=== PATIENT | female | born 1945 | race Caucasian/White ===

== ENCOUNTER 2022-02-13 17:46 | Inpatient (IN) | payer MEDICARE, OTHER ==
[~2022-02-13] VITALS: Ht 162.6 cm; Wt 62.7 kg
[2022-02-13 19:15] LABS: BASOPHILS % 0.3 % (0.0-1.0); EOSINOPHILS # (AUTO) 0.4 (0.0-0.4); EOSINOPHILS % 4.2 % (0.0-6.0); HEMATOCRIT 27.7 % (34.2-44.1); HEMOGLOBIN 8.3 g/dL (12.0-16.0); LYMPHOCYTES # (AUTO) 1.6 (1.0-3.2); LYMPHOCYTES % 17.7 % (18.0-39.1); MEAN CORPUSCULAR HEMOGLOBIN 31.8 pg (28-32); MEAN CORPUSCULAR VOLUME 106.1 fL (81-99); MONOCYTES # (AUTO) 0.8 (0.2-0.8); MONOCYTES % 8.9 % (4.4-11.3); NEUTROPHILS # (AUTO) 5.9 (2.1-6.9); NEUTROPHILS % 68.1 % (38.7-80.0); PLATELET COUNT 216 x10e3/uL (140-360); RED BLOOD COUNT 2.61 x10e6/uL (3.6-5.1); RED CELL DISTRIBUTION WIDTH 14.2 % (11.7-14.4)
[2022-02-13 19:29] LABS: INR 0.97; PROTHROMBIN TIME 13.8 seconds (11.9-14.5)
[2022-02-13 19:32] LABS: PARTIAL THROMBOPLASTIN TIME 21.8 seconds (23.8-35.5)
[2022-02-13 19:39] LABS: ALBUMIN 2.9 g/dL (3.5-5.0); ALBUMIN/GLOBULIN RATIO 0.8 (0.8-2.0); ANION GAP 18.6 mmol/L (8-16); CALCIUM 7.8 mg/dL (8.4-10.2); CREATININE, SERUM 4.26 mg/dL (0.57-1.11); POTASSIUM 4.6 mmol/L (3.5-5.1)
[2022-02-13 19:47] LABS: CREATINE KINASE MB 5.1 ng/mL (0-5.0)
[2022-02-13] MEDS ORDERED: SODIUM CHLORIDE 0.9% 1000ML 1,000 ML IV SCH (21:00)
[2022-02-13] MEDS ORDERED: DEXTROSE 50% SYRINGE 50 ML IV PRN (21:30)
[2022-02-13] MEDS ORDERED: ONDANSETRON HCL INJ 2MG/ML 2ML 2 MG/ML VIAL IV PRN (21:30)
[2022-02-13 22:50] VITALS: BP 123/58
[2022-02-13] MEDS ORDERED: POLYETHYLENE GLYCOL 3350 17 GM PACK PO PRN (23:15)
[2022-02-13] MEDS ORDERED: ACETAMINOPHEN 325 MG TAB PO PRN (23:15)
[2022-02-14] VITALS (7 sets, daily range): BP systolic 113–145; BP diastolic 51–75
[2022-02-14 03:22] LABS: CREATINE KINASE MB 3.4 ng/mL (0-5.0)
[2022-02-14 06:05] LABS: BASOPHILS % 0.4 % (0.0-1.0); EOSINOPHILS # (AUTO) 0.4 (0.0-0.4); EOSINOPHILS % 5.4 % (0.0-6.0); HEMATOCRIT 24.2 % (34.2-44.1); HEMOGLOBIN 7.3 g/dL (12.0-16.0); LYMPHOCYTES # (AUTO) 1.6 (1.0-3.2); LYMPHOCYTES % 22.4 % (18.0-39.1); MEAN CORPUSCULAR HEMOGLOBIN 31.6 pg (28-32); MEAN CORPUSCULAR HGB CONC 30.2 g/dL (31-35); MEAN CORPUSCULAR VOLUME 104.8 fL (81-99); MONOCYTES # (AUTO) 0.7 (0.2-0.8); MONOCYTES % 9.9 % (4.4-11.3); NEUTROPHILS # (AUTO) 4.4 (2.1-6.9); NEUTROPHILS % 61.2 % (38.7-80.0); RED BLOOD COUNT 2.31 x10e6/uL (3.6-5.1); RED CELL DISTRIBUTION WIDTH 14.3 % (11.7-14.4)
[2022-02-14 06:19] LABS: PLATELET COUNT 199 x10e3/uL (140-360)
[2022-02-14 06:32] LABS: ALBUMIN 2.5 g/dL (3.5-5.0); ALBUMIN/GLOBULIN RATIO 0.8 (0.8-2.0); ANION GAP 16.8 mmol/L (8-16); CALCIUM 7.8 mg/dL (8.4-10.2); CREATININE, SERUM 4.25 mg/dL (0.57-1.11); POTASSIUM 4.8 mmol/L (3.5-5.1)
[2022-02-14 07:09] LABS: CREATINE KINASE MB 3.2 ng/mL (0-5.0)
[2022-02-14 07:15] LABS: CHOL/HDL RATIO 2.8 (3.0-3.6); MAGNESIUM 2.3 MG/DL (1.3-2.1); PHOSPHORUS 6.1 MG/DL (2.3-4.7)
[2022-02-14] MEDS ORDERED: FAMOTIDINE 20 MG TAB PO SCH (07:30)
[2022-02-14] MEDS: INSULIN REGULAR, HUMAN 100 UNIT/1 ML SQ SCH ×4 (07:30→21:00)
[2022-02-14 07:35] LABS: THYROID STIMULATING HORMONE 2.824 uIU/mL (0.350-4.940)
[2022-02-14] MEDS ORDERED: ASPIRIN 81 MG ENTERIC COATED PO SCH (09:00)
[2022-02-14] MEDS: CLOPIDOGREL BISULFATE 75 MG TAB PO SCH (09:49)
[2022-02-14] MEDS: DOCUSATE SODIUM 100 MG CAP PO SCH ×2 (09:49→17:49)
[2022-02-14] MEDS: MEGESTROL ACETATE 40 MG TAB PO SCH ×2 (09:49→17:49)
[2022-02-14 11:53] LABS: BASOPHILS # (AUTO) 0.1 (0.0-0.1); BASOPHILS % 0.7 % (0.0-1.0); EOSINOPHILS # (AUTO) 0.3 (0.0-0.4); EOSINOPHILS % 4.1 % (0.0-6.0); HEMOGLOBIN 7.8 g/dL (12.0-16.0); LYMPHOCYTES # (AUTO) 0.9 (1.0-3.2); LYMPHOCYTES % 12.9 % (18.0-39.1); MEAN CORPUSCULAR HEMOGLOBIN 31.6 pg (28-32); MEAN CORPUSCULAR VOLUME 105.3 fL (81-99); MONOCYTES # (AUTO) 0.6 (0.2-0.8); MONOCYTES % 8.3 % (4.4-11.3); NEUTROPHILS # (AUTO) 5.3 (2.1-6.9); NEUTROPHILS % 73.6 % (38.7-80.0); PLATELET COUNT 215 x10e3/uL (140-360); RED BLOOD COUNT 2.47 x10e6/uL (3.6-5.1); RED CELL DISTRIBUTION WIDTH 14.2 % (11.7-14.4)
[2022-02-14 12:21] LABS: ANION GAP 15.8 mmol/L (8-16); CALCIUM 7.9 mg/dL (8.4-10.2); CREATININE, SERUM 4.33 mg/dL (0.57-1.11); POTASSIUM 4.8 mmol/L (3.5-5.1)
[2022-02-14] MEDS: SODIUM BICARBONATE 8.4% 150 ML in DEXTROSE 5% 1,000 ML IV SCH (12:30)
[2022-02-14 13:06] LABS: FERRITIN 227.64 ng/mL (4.63-204.00)
[2022-02-14] MEDS: METRONIDAZOLE 500MG/NS 100ML 100 ML IV SCH ×2 (14:10→23:26)
[2022-02-14 14:46] LABS: CREATINE KINASE MB 2.4 ng/mL (0-5.0)
[2022-02-14 15:42] LABS: CLARITY,URINE SL CLOUDY (CLEAR); COLOR,URINE YELLOW (YELLOW); KETONES,URINE NEGATIVE (NEGATIVE); LEUKOCYTE ESTERASE ,URINE SMALL (NEGATIVE); NITRITE,URINE NEGATIVE (NEGATIVE); PROTEIN,URINE DIPSTICK 1+ (NEGATIVE); URINE UROBILINOGEN 0.2 mg/dL (0.2 - 1)
[2022-02-14 15:56] LABS: AMORPHOUS SEDIMENT,URINE MANY (FEW); BACTERIA,URINE MODERATE /HPF; RBC,URINE 0-5 /HPF (0-5)
[2022-02-15] VITALS (8 sets, daily range): BP systolic 125–170; BP diastolic 62–84
[2022-02-15] MEDS: SODIUM BICARBONATE 8.4% 150 ML in DEXTROSE 5% 1,000 ML IV SCH ×2 (02:50→06:35)
[2022-02-15] MEDS: METRONIDAZOLE 500MG/NS 100ML 100 ML IV SCH ×3 (05:39→21:41)
[2022-02-15 06:24] LABS: BASOPHILS % 0.3 % (0.0-1.0); EOSINOPHILS # (AUTO) 0.3 (0.0-0.4); EOSINOPHILS % 3.2 % (0.0-6.0); HEMOGLOBIN 7.2 g/dL (12.0-16.0); LYMPHOCYTES # (AUTO) 1.3 (1.0-3.2); MEAN CORPUSCULAR HEMOGLOBIN 31.7 pg (28-32); MEAN CORPUSCULAR HGB CONC 31.6 g/dL (31-35); MEAN CORPUSCULAR VOLUME 100.4 fL (81-99); MONOCYTES # (AUTO) 0.7 (0.2-0.8); MONOCYTES % 8.1 % (4.4-11.3); NEUTROPHILS # (AUTO) 6.4 (2.1-6.9); NEUTROPHILS % 72.8 % (38.7-80.0); PLATELET COUNT 218 x10e3/uL (140-360); RED BLOOD COUNT 2.27 x10e6/uL (3.6-5.1); RED CELL DISTRIBUTION WIDTH 14.2 % (11.7-14.4)
[2022-02-15 06:51] LABS: ALBUMIN 2.4 g/dL (3.5-5.0); ALBUMIN/GLOBULIN RATIO 0.9 (0.8-2.0); ANION GAP 14.3 mmol/L (8-16); CALCIUM 7.9 mg/dL (8.4-10.2); CREATININE, SERUM 4.02 mg/dL (0.57-1.11); POTASSIUM 4.3 mmol/L (3.5-5.1)
[2022-02-15 07:00] LABS: HEMATOCRIT 22.8 % (34.2-44.1)
[2022-02-15] MEDS: INSULIN REGULAR, HUMAN 100 UNIT/1 ML SQ SCH ×4 (07:30→21:53)
[2022-02-15] MEDS: DOCUSATE SODIUM 100 MG CAP PO SCH (09:00)
[2022-02-15] MEDS: CLOPIDOGREL BISULFATE 75 MG TAB PO SCH (09:35)
[2022-02-15] MEDS: MEGESTROL ACETATE 40 MG TAB PO SCH ×2 (09:35→17:15)
[2022-02-15] MEDS: CHOLESTYRAMINE 4 GM PACKET PO SCH (12:07)
[2022-02-15] MEDS ORDERED: EPOETIN ALFA-EPBX 10,000 UNIT/ML VIAL SC ONE (12:30)
[2022-02-15] MEDS: IRON SUCROSE 100 MG in SODIUM CHLORIDE 0.9% 100 ML 100 ML IV SCH (15:00)
[2022-02-15] MEDS: HYDRALAZINE HCL 20 MG/ML VIAL IV PRN (21:42)
[2022-02-16] VITALS (8 sets, daily range): BP systolic 135–165; BP diastolic 57–74
[2022-02-16] MEDS: SODIUM BICARBONATE 8.4% 150 ML in DEXTROSE 5% 1,000 ML IV SCH (01:37)
[2022-02-16 05:33] LABS: BASOPHILS % 0.2 % (0.0-1.0); EOSINOPHILS # (AUTO) 0.2 (0.0-0.4); EOSINOPHILS % 2.4 % (0.0-6.0); HEMATOCRIT 23.1 % (34.2-44.1); HEMOGLOBIN 7.3 g/dL (12.0-16.0); LYMPHOCYTES # (AUTO) 1.5 (1.0-3.2); LYMPHOCYTES % 18.1 % (18.0-39.1); MEAN CORPUSCULAR HEMOGLOBIN 31.2 pg (28-32); MEAN CORPUSCULAR HGB CONC 31.6 g/dL (31-35); MEAN CORPUSCULAR VOLUME 98.7 fL (81-99); MONOCYTES % 12.5 % (4.4-11.3); NEUTROPHILS # (AUTO) 5.4 (2.1-6.9); NEUTROPHILS % 66.1 % (38.7-80.0); PLATELET COUNT 240 x10e3/uL (140-360); RED BLOOD COUNT 2.34 x10e6/uL (3.6-5.1); RED CELL DISTRIBUTION WIDTH 14.2 % (11.7-14.4)
[2022-02-16 05:54] LABS: ALBUMIN 2.3 g/dL (3.5-5.0); ALBUMIN/GLOBULIN RATIO 0.8 (0.8-2.0); ANION GAP 14.8 mmol/L (8-16); CALCIUM 7.6 mg/dL (8.4-10.2); CREATININE, SERUM 3.21 mg/dL (0.57-1.11); POTASSIUM 3.8 mmol/L (3.5-5.1)
[2022-02-16] MEDS: METRONIDAZOLE 500MG/NS 100ML 100 ML IV SCH ×3 (06:28→21:13)
[2022-02-16] MEDS: INSULIN REGULAR, HUMAN 100 UNIT/1 ML SQ SCH ×4 (07:30→21:00)
[2022-02-16] MEDS: MEGESTROL ACETATE 40 MG TAB PO SCH ×2 (09:25→17:15)
[2022-02-16] MEDS: CLOPIDOGREL BISULFATE 75 MG TAB PO SCH (09:26)
[2022-02-16] MEDS: CHOLESTYRAMINE 4 GM PACKET PO SCH (11:00)
[2022-02-16] MEDS ORDERED: SODIUM CHLORIDE 0.9% 250ML 250 ML ONE (14:12)
[2022-02-16] MEDS: IRON SUCROSE 100 MG in SODIUM CHLORIDE 0.9% 100 ML 100 ML IV SCH (15:07)
[2022-02-16] MEDS: METOPROLOL TARTRATE 25 MG TAB PO SCH (17:15)
[2022-02-16] MEDS ORDERED: FUROSEMIDE 40 MG TAB PO SCH (18:00)
[2022-02-16] MEDS: TRAZODONE HCL 50 MG TAB PO SCH (23:55)
[2022-02-17 04:00] VITALS: BP 142/66
[2022-02-17] MEDS: METRONIDAZOLE 500MG/NS 100ML 100 ML IV SCH ×3 (05:25→21:04)
[2022-02-17 06:24] LABS: BASOPHILS # (AUTO) 0.1 (0.0-0.1); BASOPHILS % 0.8 % (0.0-1.0); EOSINOPHILS # (AUTO) 0.2 (0.0-0.4); EOSINOPHILS % 2.8 % (0.0-6.0); HEMATOCRIT 24.4 % (34.2-44.1); HEMOGLOBIN 7.7 g/dL (12.0-16.0); LYMPHOCYTES # (AUTO) 1.8 (1.0-3.2); LYMPHOCYTES % 23.8 % (18.0-39.1); MEAN CORPUSCULAR HEMOGLOBIN 31.4 pg (28-32); MEAN CORPUSCULAR HGB CONC 31.6 g/dL (31-35); MEAN CORPUSCULAR VOLUME 99.6 fL (81-99); MONOCYTES % 12.6 % (4.4-11.3); NEUTROPHILS # (AUTO) 4.5 (2.1-6.9); NEUTROPHILS % 59.6 % (38.7-80.0); PLATELET COUNT 273 x10e3/uL (140-360); RED BLOOD COUNT 2.45 x10e6/uL (3.6-5.1); RED CELL DISTRIBUTION WIDTH 14.2 % (11.7-14.4)
[2022-02-17 06:38] LABS: ALBUMIN 2.2 g/dL (3.5-5.0); ALBUMIN/GLOBULIN RATIO 0.7 (0.8-2.0); ANION GAP 14.4 mmol/L (8-16); CREATININE, SERUM 2.65 mg/dL (0.57-1.11); POTASSIUM 3.4 mmol/L (3.5-5.1)
[2022-02-17] MEDS: INSULIN REGULAR, HUMAN 100 UNIT/1 ML SQ SCH ×4 (07:30→21:00)
[2022-02-17 08:00] VITALS: BP 151/81
[2022-02-17] MEDS: FUROSEMIDE INJ 10 MG/ML 4 ML VIAL IV SCH (09:19)
[2022-02-17] MEDS: CHOLESTYRAMINE 4 GM PACKET PO SCH (09:20)
[2022-02-17] MEDS: MEGESTROL ACETATE 40 MG TAB PO SCH ×2 (09:20→16:43)
[2022-02-17] MEDS: CLOPIDOGREL BISULFATE 75 MG TAB PO SCH (09:20)
[2022-02-17] MEDS: METOPROLOL TARTRATE 25 MG TAB PO SCH ×2 (09:20→16:35)
[2022-02-17] MEDS ORDERED: ONGLYZA2.5 MG PO (10:32)
[2022-02-17] MEDS ORDERED: HYDRALAZINE HC100 MG PO (10:32)
[2022-02-17] MEDS ORDERED: VICODIN HP 10-1 EAC1 PO (10:32)
[2022-02-17] MEDS ORDERED: VITAMIN D31 ML PO (10:32)
[2022-02-17] MEDS ORDERED: PLAVIX75 MG PO (10:32)
[2022-02-17] MEDS ORDERED: TRAZODONE HCL50 MG PO (10:32)
[2022-02-17] MEDS ORDERED: MULTI-VITAMIN1 EACH PO (10:32)
[2022-02-17] MEDS ORDERED: BACLOFEN10 MG PO (10:32)
[2022-02-17] MEDS ORDERED: ATORVASTATIN CA20 MG PO (10:32)
[2022-02-17] MEDS ORDERED: COENZYME Q-1050 MG PO (10:32)
[2022-02-17] MEDS ORDERED: GLIPIZIDE5 MG PO (10:32)
[2022-02-17] MEDS ORDERED: OMEGA-31000 MG PO (10:32)
[2022-02-17] MEDS ORDERED: METHADONE HCL5 MG PO (10:32)
[2022-02-17] MEDS ORDERED: CALCIUM CARBON500 MG PO (10:32)
[2022-02-17] MEDS ORDERED: ASPIRIN81 MG PO (10:32)
[2022-02-17] MEDS ORDERED: FUROSEMIDE40 MG PO (10:32)
[2022-02-17] MEDS ORDERED: ARAVA20 MG PO (10:32)
[2022-02-17] MEDS ORDERED: METOPROLOL SUCC50 MG PO (10:32)
[2022-02-17] MEDS ORDERED: ASCORBIC ACID500 M2 PO (10:32)
[2022-02-17] MEDS ORDERED: VITAMIN B-121000 MCG PO (10:32)
[2022-02-17] MEDS ORDERED: NEURONTIN300 MG PO (10:32)
[2022-02-17] MEDS ORDERED: SPIRONOLACTONE25 MG PO (10:32)
[2022-02-17] MEDS ORDERED: TOPIRAMATE25 MG PO (10:32)
[2022-02-17] MEDS ORDERED: FLUOXETINE HCL20 M1 PO (10:32)
[2022-02-17] MEDS ORDERED: QUESTRAN PACKET4 GM PO (10:32)
[2022-02-17] MEDS ORDERED: POTASSIUM CHLORIDE 20 MEQ TAB CR PO ONE (11:00)
[2022-02-17 12:00] VITALS: BP 160/70
[2022-02-17] MEDS: IRON SUCROSE 100 MG in SODIUM CHLORIDE 0.9% 100 ML 100 ML IV SCH (15:00)
[2022-02-17 17:26] VITALS: BP 162/64
[2022-02-17 17:32] VITALS: BP 162/64
[2022-02-17 20:00] VITALS: BP 164/70
[2022-02-17] MEDS: ATORVASTATIN 20 MG TAB PO SCH (21:00)
[2022-02-17] MEDS: TRAZODONE HCL 50 MG TAB PO SCH (21:00)
[2022-02-18] VITALS (7 sets, daily range): BP systolic 142–182; BP diastolic 59–84
[2022-02-18] MEDS: HYDRALAZINE HCL 20 MG/ML VIAL IV PRN (04:45)
[2022-02-18] MEDS: METRONIDAZOLE 500MG/NS 100ML 100 ML IV SCH ×3 (05:14→21:12)
[2022-02-18] MEDS: INSULIN REGULAR, HUMAN 100 UNIT/1 ML SQ SCH ×4 (07:30→20:47)
[2022-02-18] MEDS: MEGESTROL ACETATE 40 MG TAB PO SCH ×2 (08:49→16:36)
[2022-02-18] MEDS: METOPROLOL TARTRATE 25 MG TAB PO SCH ×2 (08:49→16:36)
[2022-02-18] MEDS: FUROSEMIDE INJ 10 MG/ML 4 ML VIAL IV SCH (08:49)
[2022-02-18] MEDS: HYDRALAZINE HCL 100 MG TABLET PO SCH ×3 (08:49→20:29)
[2022-02-18] MEDS: CLOPIDOGREL BISULFATE 75 MG TAB PO SCH (08:50)
[2022-02-18] MEDS: TOPIRAMATE 25 MG TAB PO SCH (08:50)
[2022-02-18] MEDS: CHOLESTYRAMINE 4 GM PACKET PO SCH (08:50)
[2022-02-18] MEDS: FLUOXETINE HCL 20 MG CAP PO SCH ×2 (08:50→16:36)
[2022-02-18 08:53] LABS: ANION GAP 16.4 mmol/L (8-16); CALCIUM 8.9 mg/dL (8.4-10.2); CREATININE, SERUM 2.38 mg/dL (0.57-1.11); POTASSIUM 3.4 mmol/L (3.5-5.1)
[2022-02-18] MEDS: GABAPENTIN 300 MG CAP PO SCH ×3 (09:00→20:29)
[2022-02-18] MEDS ORDERED: SPIRONOLACTONE 25 MG TAB PO SCH (09:00)
[2022-02-18] MEDS ORDERED: GABAPENTIN 300 MG CAP PO ONE (09:00)
[2022-02-18] MEDS: CHOLECALCIFEROL 400 UNIT TAB PO SCH (09:00)
[2022-02-18] MEDS: SAXAGLIPTIN HCL 2.5 MG PO SCH (09:00)
[2022-02-18] MEDS: CYANOCOBALAMIN 1,000 MCG TAB PO SCH (09:00)
[2022-02-18] MEDS: METHADONE HCL 5 MG TAB PO SCH ×3 (11:04→20:29)
[2022-02-18] MEDS ORDERED: HYDROCODONE/APAP 5MG-325MG TAB PO PRN (13:45)
[2022-02-18] MEDS: IRON SUCROSE 100 MG in SODIUM CHLORIDE 0.9% 100 ML 100 ML IV SCH (15:00)
[2022-02-18] MEDS: TRAZODONE HCL 50 MG TAB PO SCH (20:29)
[2022-02-18] MEDS: ATORVASTATIN 20 MG TAB PO SCH (20:29)
[2022-02-19] VITALS: BP 138/56
[2022-02-19 04:00] VITALS: BP 126/52
[2022-02-19] MEDS: METRONIDAZOLE 500MG/NS 100ML 100 ML IV SCH (05:03)
[2022-02-19] MEDS: INSULIN REGULAR, HUMAN 100 UNIT/1 ML SQ SCH ×2 (07:30→11:30)
[2022-02-19 07:51] VITALS: BP 127/56
[2022-02-19 08:19] VITALS: BP 127/56
[2022-02-19 08:33] LABS: BASOPHILS % 0.4 % (0.0-1.0); EOSINOPHILS # (AUTO) 0.3 (0.0-0.4); EOSINOPHILS % 3.5 % (0.0-6.0); HEMATOCRIT 24.8 % (34.2-44.1); HEMOGLOBIN 7.6 g/dL (12.0-16.0); LYMPHOCYTES # (AUTO) 2.2 (1.0-3.2); LYMPHOCYTES % 28.2 % (18.0-39.1); MEAN CORPUSCULAR HEMOGLOBIN 31.3 pg (28-32); MEAN CORPUSCULAR HGB CONC 30.6 g/dL (31-35); MEAN CORPUSCULAR VOLUME 102.1 fL (81-99); MONOCYTES # (AUTO) 0.7 (0.2-0.8); MONOCYTES % 8.2 % (4.4-11.3); NEUTROPHILS # (AUTO) 4.7 (2.1-6.9); NEUTROPHILS % 59.3 % (38.7-80.0); PLATELET COUNT 329 x10e3/uL (140-360); RED BLOOD COUNT 2.43 x10e6/uL (3.6-5.1); RED CELL DISTRIBUTION WIDTH 14.3 % (11.7-14.4)
[2022-02-19 08:53] LABS: ANION GAP 15.7 mmol/L (8-16); CREATININE, SERUM 2.4 mg/dL (0.57-1.11); POTASSIUM 3.7 mmol/L (3.5-5.1)
[2022-02-19] MEDS: HYDRALAZINE HCL 100 MG TABLET PO SCH (09:00)
[2022-02-19] MEDS: SAXAGLIPTIN HCL 2.5 MG PO SCH (09:00)
[2022-02-19] MEDS: METHADONE HCL 5 MG TAB PO SCH (09:00)
[2022-02-19] MEDS: METOPROLOL TARTRATE 25 MG TAB PO SCH (09:00)
[2022-02-19] MEDS: MEGESTROL ACETATE 40 MG TAB PO SCH (09:31)
[2022-02-19] MEDS: FUROSEMIDE INJ 10 MG/ML 4 ML VIAL IV SCH (09:31)
[2022-02-19] MEDS: TOPIRAMATE 25 MG TAB PO SCH (09:32)
[2022-02-19] MEDS: CHOLECALCIFEROL 400 UNIT TAB PO SCH (09:32)
[2022-02-19] MEDS: CLOPIDOGREL BISULFATE 75 MG TAB PO SCH (09:32)
[2022-02-19] MEDS: GABAPENTIN 300 MG CAP PO SCH (09:32)
[2022-02-19] MEDS: FLUOXETINE HCL 20 MG CAP PO SCH (09:32)
[2022-02-19] MEDS: CYANOCOBALAMIN 1,000 MCG TAB PO SCH (09:32)
[2022-02-19] MEDS: CHOLESTYRAMINE 4 GM PACKET PO SCH (10:00)
[2022-02-19 11:38] VITALS: BP 145/57
[2022-02-19] MEDS ORDERED: PROTONIX40 MG PO (12:56)
[2022-02-19] MEDS ORDERED: EPOETIN ALFA-EPBX 10,000 UNIT/ML VIAL SC ONE (14:50)
[2022-02-19] MEDS ORDERED: PANTOPRAZOLE SOD 40 MG TABEC PO SCH (16:30)
[2022-02-20] MEDS ORDERED: GABAPENTIN 300 MG CAP PO SCH (09:00)
== END 2022-02-19 14:53 | disposition home health service (06) | DRG 377 ==
LOC: ER 18:34 → ERHOLD 21:20 → OBSVTOIN 21:20 → MED/SURG3 23:12
PROVIDERS: ADMIT Internal Medicine; ATTEND Internal Medicine
DX: K92.2 Gastrointestinal hemorrhage, unspecified (principal); G93.41 Metabolic encephalopathy; I50.23 Acute on chronic systolic (congestive) heart failure; N17.9 Acute kidney failure, unspecified; E87.2 Acidosis; I13.0 Hypertensive heart and chronic kidney disease with heart failure and stage 1 through stage 4 chronic kidney disease, or unspecified chronic kidney disease; N18.4 Chronic kidney disease, stage 4 (severe); R62.7 Adult failure to thrive; E11.22 Type 2 diabetes mellitus with diabetic chronic kidney disease; I25.10 Atherosclerotic heart disease of native coronary artery without angina pectoris; J44.9 Chronic obstructive pulmonary disease, unspecified; Z68.23 Body mass index [BMI] 23.0-23.9, adult; M06.9 Rheumatoid arthritis, unspecified; E11.65 Type 2 diabetes mellitus with hyperglycemia; I25.5 Ischemic cardiomyopathy; G89.4 Chronic pain syndrome; E87.6 Hypokalemia; N28.1 Cyst of kidney, acquired; R19.7 Diarrhea, unspecified; Z91.018 Allergy to other foods; I25.2 Old myocardial infarction; Z85.828 Personal history of other malignant neoplasm of skin; Z90.49 Acquired absence of other specified parts of digestive tract; Z91.012 Allergy to eggs; Z91.011 Allergy to milk products; Z98.890 Other specified postprocedural states; Z95.5 Presence of coronary angioplasty implant and graft; Z87.891 Personal history of nicotine dependence; Z88.0 Allergy status to penicillin; Z88.2 Allergy status to sulfonamides; Z88.8 Allergy status to other drugs, medicaments and biological substances; Z20.822 Contact with and (suspected) exposure to COVID-19
CPT/HCPCS: 36415; 70450; 71045; 74470; 76770; 80048; 80053; 80061; 81001; 82140; 82270; 82550; 82553; 82607; 82728; 82746; 82948; 83036; 83540; 83735; 83880; 84100; 84443; 84466; 84484; 85025; 85045; 85610; 85730; 87493; 93005; 93306; 94799; 96361; 97139; 99251; 99284; J0360; J1756; J1817; J1940; J7030; J7050; J7070; U0002

== ENCOUNTER 2022-02-22 20:26 | Observation (INO) | payer MEDICARE, OTHER ==
[~2022-02-22] VITALS: Ht 162.6 cm; Wt 62.6 kg
[~2022-02-22 20:26] MED LIST: ARAVA20 MG PO; ASCORBIC ACID500 M2 PO; ASPIRIN81 MG PO; ATORVASTATIN CA20 MG PO; BACLOFEN10 MG PO; CALCIUM CARBON500 MG PO; COENZYME Q-1050 MG PO; FLUOXETINE HCL20 M1 PO; FUROSEMIDE40 MG PO; GLIPIZIDE5 MG PO; HYDRALAZINE HC100 MG PO; METHADONE HCL5 MG PO; METOPROLOL SUCC50 MG PO; MULTI-VITAMIN1 EACH PO; NEURONTIN300 MG PO; OMEGA-31000 MG PO; ONGLYZA2.5 MG PO; PLAVIX75 MG PO; PROTONIX40 MG PO; QUESTRAN PACKET4 GM PO; SPIRONOLACTONE25 MG PO; TOPIRAMATE25 MG PO; TRAZODONE HCL50 MG PO; VICODIN HP 10-1 EAC1 PO; VITAMIN B-121000 MCG PO; VITAMIN D31 ML PO
[2022-02-22 21:41] LABS: CLARITY,URINE SL CLOUDY (CLEAR); COLOR,URINE YELLOW (YELLOW); KETONES,URINE NEGATIVE (NEGATIVE); LEUKOCYTE ESTERASE ,URINE NEGATIVE (NEGATIVE); NITRITE,URINE NEGATIVE (NEGATIVE); PROTEIN,URINE DIPSTICK 2+ (NEGATIVE); URINE UROBILINOGEN 0.2 mg/dL (0.2 - 1)
[2022-02-22 21:45] LABS: BASOPHILS % 0.4 % (0.0-1.0); EOSINOPHILS # (AUTO) 0.2 (0.0-0.4); HEMATOCRIT 28.7 % (34.2-44.1); HEMOGLOBIN 8.8 g/dL (12.0-16.0); LYMPHOCYTES # (AUTO) 1.6 (1.0-3.2); LYMPHOCYTES % 20.4 % (18.0-39.1); MEAN CORPUSCULAR HEMOGLOBIN 31.9 pg (28-32); MEAN CORPUSCULAR HGB CONC 30.7 g/dL (31-35); MONOCYTES # (AUTO) 0.5 (0.2-0.8); MONOCYTES % 6.5 % (4.4-11.3); NEUTROPHILS # (AUTO) 5.4 (2.1-6.9); NEUTROPHILS % 69.2 % (38.7-80.0); PLATELET COUNT 310 x10e3/uL (140-360); RED BLOOD COUNT 2.76 x10e6/uL (3.6-5.1); RED CELL DISTRIBUTION WIDTH 15.1 % (11.7-14.4)
[2022-02-22 21:52] LABS: AMORPHOUS SEDIMENT,URINE MODERATE (FEW); BACTERIA,URINE FEW /HPF; EPITHELIAL CELLS,URINE MODERATE /LPF; WBC,URINE (MAN) 0-5 /HPF (0-5)
[2022-02-22 21:57] LABS: ALBUMIN/GLOBULIN RATIO 0.9 (0.8-2.0); ANION GAP 15.6 mmol/L (8-16); CALCIUM 8.4 mg/dL (8.4-10.2); CREATININE, SERUM 3.56 mg/dL (0.57-1.11); POTASSIUM 3.6 mmol/L (3.5-5.1)
[2022-02-22 22:04] LABS: CREATINE KINASE MB 5.2 ng/mL (0-5.0)
[2022-02-22] MEDS ORDERED: ONDANSETRON HCL INJ 2MG/ML 2ML 2 MG/ML VIAL IV PRN (23:30)
[2022-02-22] MEDS ORDERED: SODIUM CHLORIDE 0.9% 1000ML 1,000 ML IV ONE (23:30)
[2022-02-23] VITALS (9 sets, daily range): BP systolic 156–171; BP diastolic 58–76
[2022-02-23 06:31] LABS: BASOPHILS % 0.5 % (0.0-1.0); EOSINOPHILS # (AUTO) 0.3 (0.0-0.4); EOSINOPHILS % 4.1 % (0.0-6.0); HEMATOCRIT 25.9 % (34.2-44.1); HEMOGLOBIN 7.8 g/dL (12.0-16.0); LYMPHOCYTES # (AUTO) 1.5 (1.0-3.2); LYMPHOCYTES % 22.6 % (18.0-39.1); MEAN CORPUSCULAR HGB CONC 30.1 g/dL (31-35); MEAN CORPUSCULAR VOLUME 106.1 fL (81-99); MONOCYTES # (AUTO) 0.5 (0.2-0.8); NEUTROPHILS # (AUTO) 4.3 (2.1-6.9); NEUTROPHILS % 65.3 % (38.7-80.0); PLATELET COUNT 325 x10e3/uL (140-360); RED BLOOD COUNT 2.44 x10e6/uL (3.6-5.1); RED CELL DISTRIBUTION WIDTH 15.1 % (11.7-14.4)
[2022-02-23 07:11] LABS: ALBUMIN 2.6 g/dL (3.5-5.0); ALBUMIN/GLOBULIN RATIO 0.9 (0.8-2.0); ANION GAP 13.7 mmol/L (8-16); CALCIUM 8.2 mg/dL (8.4-10.2); CREATININE, SERUM 3.22 mg/dL (0.57-1.11); POTASSIUM 3.7 mmol/L (3.5-5.1)
[2022-02-23 10:42] LABS: % IRON SATURATION 14 % (15-50); IRON 30 ug/dL (50-170); TOTAL IRON BINDING CAPACITY 221 ug/dL (261-478); TRANSFERRIN 158 mg/dL (180-382)
[2022-02-23 11:54] LABS: PLATELET ESTIMATE ADEQUATE; PLATELET MORPHOLOGY COMMENT NORMAL; RBC MORPHOLOGY COMMENT NORMAL
[2022-02-23] MEDS ORDERED: DEXTROSE 50% SYRINGE 50 ML IV PRN (14:00)
[2022-02-23] MEDS ORDERED: HYDRALAZINE HCL 20 MG/ML VIAL IV PRN (14:00)
[2022-02-23] MEDS ORDERED: POLYETHYLENE GLYCOL 3350 17 GM PACK PO PRN (14:00)
[2022-02-23] MEDS: PANTOPRAZOLE SOD 40 MG TABEC PO SCH (15:24)
[2022-02-23] MEDS: CLOPIDOGREL BISULFATE 75 MG TAB PO SCH (15:24)
[2022-02-23] MEDS: HYDRALAZINE HCL 100 MG TABLET PO SCH ×2 (15:24→22:00)
[2022-02-23] MEDS: INSULIN REGULAR, HUMAN 100 UNIT/1 ML SQ SCH ×2 (17:30→21:00)
[2022-02-23] MEDS: CHOLESTYRAMINE 4 GM PACKET PO SCH ×3 (17:34→21:00)
[2022-02-23] MEDS: IRON SUCROSE 100 MG in SODIUM CHLORIDE 0.9% 100 ML 100 ML IV SCH (17:34)
[2022-02-23] MEDS: TRAZODONE HCL 50 MG TAB PO SCH (22:00)
[2022-02-23] MEDS: ATORVASTATIN 20 MG TAB PO SCH (22:00)
[2022-02-23] MEDS: HYDROCODONE/APAP 10MG-325MG TAB PO PRN (23:00)
[2022-02-24] VITALS (8 sets, daily range): BP systolic 143–161; BP diastolic 59–67
[2022-02-24] MEDS: ACETAMINOPHEN 325 MG TAB PO PRN (05:30)
[2022-02-24 06:37] LABS: BASOPHILS % 0.5 % (0.0-1.0); EOSINOPHILS # (AUTO) 0.3 (0.0-0.4); EOSINOPHILS % 3.3 % (0.0-6.0); HEMATOCRIT 27.1 % (34.2-44.1); HEMOGLOBIN 8.3 g/dL (12.0-16.0); LYMPHOCYTES % 27.3 % (18.0-39.1); MEAN CORPUSCULAR HEMOGLOBIN 31.8 pg (28-32); MEAN CORPUSCULAR HGB CONC 30.6 g/dL (31-35); MEAN CORPUSCULAR VOLUME 103.8 fL (81-99); MONOCYTES # (AUTO) 0.6 (0.2-0.8); MONOCYTES % 7.5 % (4.4-11.3); NEUTROPHILS # (AUTO) 4.5 (2.1-6.9); NEUTROPHILS % 60.9 % (38.7-80.0); PLATELET COUNT 279 x10e3/uL (140-360); RED BLOOD COUNT 2.61 x10e6/uL (3.6-5.1); RED CELL DISTRIBUTION WIDTH 15.5 % (11.7-14.4)
[2022-02-24 07:10] LABS: ALBUMIN 2.6 g/dL (3.5-5.0); ANION GAP 12.4 mmol/L (8-16); CALCIUM 8.2 mg/dL (8.4-10.2); CREATININE, SERUM 2.69 mg/dL (0.57-1.11); POTASSIUM 3.4 mmol/L (3.5-5.1)
[2022-02-24] MEDS: OMEGA 3 POLYUNSAT FATTY ACIDS 1000 MG SOFTGEL PO SCH (07:58)
[2022-02-24] MEDS: CLOPIDOGREL BISULFATE 75 MG TAB PO SCH (07:58)
[2022-02-24] MEDS: HYDRALAZINE HCL 100 MG TABLET PO SCH ×3 (07:58→21:39)
[2022-02-24] MEDS: ASCORBIC ACID 500 MG TAB PO SCH (07:58)
[2022-02-24] MEDS: OYST-CAL-D 500MG TABLET PO SCH (07:58)
[2022-02-24] MEDS: CHOLECALCIFEROL 1,000 UNIT TAB PO SCH (07:58)
[2022-02-24] MEDS: PANTOPRAZOLE SOD 40 MG TABEC PO SCH ×2 (07:58→18:17)
[2022-02-24] MEDS: CYANOCOBALAMIN 1,000 MCG TAB PO SCH (07:58)
[2022-02-24] MEDS: UBIDECARENONE 100 MG PO SCH (07:59)
[2022-02-24] MEDS: SAXAGLIPTIN HCL 2.5 MG PO SCH (07:59)
[2022-02-24] MEDS: CHOLESTYRAMINE 4 GM PACKET PO SCH ×4 (08:07→21:00)
[2022-02-24] MEDS: INSULIN REGULAR, HUMAN 100 UNIT/1 ML SQ SCH ×4 (08:30→21:00)
[2022-02-24] MEDS ORDERED: NON-FORMULARY MEDICATION (Cholecalciferol (Vitamin D3) (Vitamin D3) 50 MCG) PO SCH (09:00)
[2022-02-24] MEDS ORDERED: CLOPIDOGREL BISULFATE 75 MG TAB PO SCH (09:00)
[2022-02-24] MEDS ORDERED: CHOLESTYRAMINE 4 GM PACKET PO SCH (10:00)
[2022-02-24] MEDS: IRON SUCROSE 100 MG in SODIUM CHLORIDE 0.9% 100 ML 100 ML IV SCH (18:17)
[2022-02-24] MEDS ORDERED: SODIUM CHLORIDE 0.9% 250ML 250 ML ONE (18:19)
[2022-02-24] MEDS: TRAZODONE HCL 50 MG TAB PO SCH (21:39)
[2022-02-24] MEDS: ATORVASTATIN 20 MG TAB PO SCH (21:39)
[2022-02-24] MEDS: HYDROCODONE/APAP 10MG-325MG TAB PO PRN (21:40)
[2022-02-25] VITALS: BP 154/67
[2022-02-25 04:00] VITALS: BP 157/68
[2022-02-25 05:27] LABS: BASOPHILS % 0.6 % (0.0-1.0); EOSINOPHILS # (AUTO) 0.2 (0.0-0.4); EOSINOPHILS % 3.6 % (0.0-6.0); HEMATOCRIT 27.7 % (34.2-44.1); HEMOGLOBIN 8.4 g/dL (12.0-16.0); LYMPHOCYTES # (AUTO) 1.9 (1.0-3.2); LYMPHOCYTES % 29.1 % (18.0-39.1); MEAN CORPUSCULAR HEMOGLOBIN 31.2 pg (28-32); MEAN CORPUSCULAR HGB CONC 30.3 g/dL (31-35); MONOCYTES # (AUTO) 0.6 (0.2-0.8); MONOCYTES % 8.3 % (4.4-11.3); NEUTROPHILS # (AUTO) 3.8 (2.1-6.9); NEUTROPHILS % 57.9 % (38.7-80.0); PLATELET COUNT 272 x10e3/uL (140-360); RED BLOOD COUNT 2.69 x10e6/uL (3.6-5.1); RED CELL DISTRIBUTION WIDTH 15.5 % (11.7-14.4)
[2022-02-25 05:52] LABS: ANION GAP 12.5 mmol/L (8-16); CALCIUM 8.4 mg/dL (8.4-10.2); CREATININE, SERUM 2.35 mg/dL (0.57-1.11); POTASSIUM 3.5 mmol/L (3.5-5.1)
[2022-02-25] MEDS: ACETAMINOPHEN 325 MG TAB PO PRN (06:00)
[2022-02-25 07:41] VITALS: BP 157/68
[2022-02-25] MEDS: SAXAGLIPTIN HCL 2.5 MG PO SCH (07:46)
[2022-02-25] MEDS: UBIDECARENONE 100 MG PO SCH (07:46)
[2022-02-25] MEDS: CHOLESTYRAMINE 4 GM PACKET PO SCH (07:47)
[2022-02-25] MEDS: HYDRALAZINE HCL 100 MG TABLET PO SCH (07:55)
[2022-02-25] MEDS: PANTOPRAZOLE SOD 40 MG TABEC PO SCH (07:55)
[2022-02-25] MEDS: CYANOCOBALAMIN 1,000 MCG TAB PO SCH (07:56)
[2022-02-25] MEDS: OMEGA 3 POLYUNSAT FATTY ACIDS 1000 MG SOFTGEL PO SCH (07:56)
[2022-02-25] MEDS: CHOLECALCIFEROL 1,000 UNIT TAB PO SCH (07:56)
[2022-02-25] MEDS: ASCORBIC ACID 500 MG TAB PO SCH (07:56)
[2022-02-25] MEDS: OYST-CAL-D 500MG TABLET PO SCH (07:56)
[2022-02-25] MEDS: CLOPIDOGREL BISULFATE 75 MG TAB PO SCH (07:56)
[2022-02-25 08:05] VITALS: BP 153/67
[2022-02-25] MEDS: INSULIN REGULAR, HUMAN 100 UNIT/1 ML SQ SCH (08:30)
[2022-02-25] MEDS ORDERED: ACETAMINOPHEN325 M1 PO (09:17)
[2022-02-25] MEDS ORDERED: PLAVIX75 MG PO (09:17)
[2022-02-25] MEDS ORDERED: QUESTRAN PACKET4 GM PO (09:17)
[2022-02-25] MEDS ORDERED: Cholecalciferol PO (09:17)
[2022-02-25 11:22] VITALS: BP 153/68
== END 2022-02-25 12:41 | disposition home or self-care (01) ==
LOC: ER 20:28 → ERHOLD 23:28 → MED/SURG2 02-23 00:54
PROVIDERS: ADMIT Internal Medicine; ATTEND Internal Medicine
DX: G92.8 Other toxic encephalopathy (principal); T50.915A Adverse effect of multiple unspecified drugs, medicaments and biological substances, initial encounter; N17.9 Acute kidney failure, unspecified; E11.22 Type 2 diabetes mellitus with diabetic chronic kidney disease; J44.9 Chronic obstructive pulmonary disease, unspecified; N18.4 Chronic kidney disease, stage 4 (severe); I13.0 Hypertensive heart and chronic kidney disease with heart failure and stage 1 through stage 4 chronic kidney disease, or unspecified chronic kidney disease; I50.22 Chronic systolic (congestive) heart failure; D62 Acute posthemorrhagic anemia; I25.10 Atherosclerotic heart disease of native coronary artery without angina pectoris; G89.4 Chronic pain syndrome; E11.42 Type 2 diabetes mellitus with diabetic polyneuropathy; L89.621 Pressure ulcer of left heel, stage 1; R19.7 Diarrhea, unspecified; R62.7 Adult failure to thrive; M06.9 Rheumatoid arthritis, unspecified; I25.2 Old myocardial infarction; Z95.5 Presence of coronary angioplasty implant and graft; Z96.659 Presence of unspecified artificial knee joint; Z96.649 Presence of unspecified artificial hip joint; Z85.828 Personal history of other malignant neoplasm of skin; Z88.0 Allergy status to penicillin; Z88.2 Allergy status to sulfonamides; Z88.8 Allergy status to other drugs, medicaments and biological substances; Z91.14 Patient's other noncompliance with medication regimen; Z68.23 Body mass index [BMI] 23.0-23.9, adult; Z87.891 Personal history of nicotine dependence; Z82.49 Family history of ischemic heart disease and other diseases of the circulatory system; M20.42 Other hammer toe(s) (acquired), left foot; M20.41 Other hammer toe(s) (acquired), right foot; M20.12 Hallux valgus (acquired), left foot; M20.11 Hallux valgus (acquired), right foot
CPT/HCPCS: 36415 ×4; 70450; 71045; 73620; 80048; 80053 ×3; 81001; 82550; 82553; 82607; 82728; 82746; 82948 ×3; 83540; 84466; 84484; 85025 ×4; 93005; 94799 ×3; 97116; 97162; 97530; 99284; G0378 ×4; J1756 ×2; J1817; J7030; J7050; S0164 ×3; U0002

== ENCOUNTER 2024-10-24 15:15 | Emergency (ER) | payer MEDICARE, OTHER ==
[~2024-10-24] VITALS: Ht 162.6 cm; Wt 65.8 kg
[~2024-10-24 15:15] MED LIST changes: +ACETAMINOPHEN325 M1 PO; +Cholecalciferol PO
[2024-10-24 17:01] LABS: BASOPHILS % 0.4 % (0.0-1.0); EOSINOPHILS % 0.4 % (0.0-6.0); HEMATOCRIT 29.3 % (34.2-44.1); HEMOGLOBIN 8.5 g/dL (12.0-16.0); LYMPHOCYTES # (AUTO) 1.3 (1.0-3.2); LYMPHOCYTES % 15.3 % (18.0-39.1); MEAN CORPUSCULAR HEMOGLOBIN 29.6 pg (28-32); MEAN CORPUSCULAR VOLUME 102.1 fL (81-99); MONOCYTES # (AUTO) 0.6 (0.2-0.8); MONOCYTES % 7.7 % (4.4-11.3); NEUTROPHILS # (AUTO) 6.1 (2.1-6.9); NEUTROPHILS % 74.4 % (38.7-80.0); PLATELET COUNT 224 x10e3/uL (140-360); RED BLOOD COUNT 2.87 x10e6/uL (3.6-5.1); RED CELL DISTRIBUTION WIDTH 16.9 % (11.7-14.4); WHITE BLOOD COUNT 8.19 x10e3/uL (4.8-10.8)
[2024-10-24 17:35] LABS: TROPONIN I 0.169 ng/mL (0-0.300)
[2024-10-24] MEDS ORDERED: ALBUTEROL 90 MCG/ACT INHALER INH STA (17:44)
[2024-10-24 17:49] LABS: ALBUMIN 3.3 g/dL (3.5-5.0); ALBUMIN/GLOBULIN RATIO 1.1 (0.8-2.0); ANION GAP 18.7 mmol/L (8-16); BILIRUBIN,TOTAL 0.7 mg/dL (0.2-1.2); CALCIUM 8.5 mg/dL (8.4-10.2); CREATININE, SERUM 2.81 mg/dL (0.57-1.11); POTASSIUM 4.7 mmol/L (3.5-5.1); TOTAL PROTEIN 6.2 g/dL (6.5-8.1)
[2024-10-24] MEDS ORDERED: VENTOLIN HFA18 GM INH (17:52)
[2024-10-24] MEDS ORDERED: DEXAMETHASONE SOD PHOS 10 MG/1 ML VIAL IV ONE (18:00)
[2024-10-24 18:35] VITALS: PULSE 87; RESP 18; TEMP 97.7; O2SAT 96
== END 2024-10-24 18:39 | disposition home or self-care (01) ==
LOC: ER 16:55
DX: R06.02 Shortness of breath (principal); J44.9 Chronic obstructive pulmonary disease, unspecified; I10 Essential (primary) hypertension; E11.65 Type 2 diabetes mellitus with hyperglycemia; I25.10 Atherosclerotic heart disease of native coronary artery without angina pectoris; I25.2 Old myocardial infarction; Z85.828 Personal history of other malignant neoplasm of skin
CPT/HCPCS: 36415; 71045; 80053; 83880; 84484; 85025; 99284; J1100; 93005

== ENCOUNTER 2024-10-26 14:11 | Inpatient (IN) | payer MEDICARE, OTHER ==
[~2024-10-26] VITALS: Ht 162.6 cm; Wt 70.3 kg
[~2024-10-26 14:11] MED LIST changes: +VENTOLIN HFA18 GM INH
[2024-10-26 14:21] VITALS: PULSE 90; RESP 18; TEMP 97.7
[2024-10-26 14:55] LABS: BASOPHILS % 0.2 % (0.0-1.0); EOSINOPHILS % 0.1 % (0.0-6.0); HEMOGLOBIN 8.3 g/dL (12.0-16.0); LYMPHOCYTES # (AUTO) 1.1 (1.0-3.2); LYMPHOCYTES % 11.1 % (18.0-39.1); MEAN CORPUSCULAR HEMOGLOBIN 29.3 pg (28-32); MEAN CORPUSCULAR HGB CONC 28.6 g/dL (31-35); MEAN CORPUSCULAR VOLUME 102.5 fL (81-99); MONOCYTES # (AUTO) 0.8 (0.2-0.8); MONOCYTES % 7.4 % (4.4-11.3); NEUTROPHILS # (AUTO) 8.2 (2.1-6.9); NEUTROPHILS % 79.2 % (38.7-80.0); PLATELET COUNT 232 x10e3/uL (140-360); RED BLOOD COUNT 2.83 x10e6/uL (3.6-5.1); RED CELL DISTRIBUTION WIDTH 17.2 % (11.7-14.4); WHITE BLOOD COUNT 10.31 x10e3/uL (4.8-10.8)
[2024-10-26 15:11] LABS: ALBUMIN 3.4 g/dL (3.5-5.0); ALBUMIN/GLOBULIN RATIO 1.2 (0.8-2.0); ANION GAP 20.3 mmol/L (8-16); BILIRUBIN,TOTAL 0.6 mg/dL (0.2-1.2); CALCIUM 8.8 mg/dL (8.4-10.2); CREATININE, SERUM 2.85 mg/dL (0.57-1.11); POTASSIUM 4.3 mmol/L (3.5-5.1); TOTAL PROTEIN 6.2 g/dL (6.5-8.1)
[2024-10-26 15:14] LABS: INR 1.09; PROTHROMBIN TIME 14.8 seconds (11.9-14.5)
[2024-10-26] MEDS ORDERED: ONDANSETRON HCL INJ 2MG/ML 2ML 2 MG/ML VIAL IV PRN (16:15)
[2024-10-26] MEDS ORDERED: SODIUM CHLORIDE FLUSH 10 ML SYR INJ PRN (16:15)
[2024-10-26] MEDS: SODIUM BICARBONATE 650 MG TAB PO SCH (17:13)
[2024-10-26] MEDS: BUMETANIDE INJ 0.25MG/ML 4ML VIAL IV ONE (17:13)
[2024-10-26 18:47] LABS: BODY FLUID APPEARANCE CLOUDY; BODY FLUID COLOR RED; BODY FLUID TYPE PLEURAL; RBC,BODY FLUID 926000 cells/uL; WBC,BODY FLUID 1166 cells/uL
[2024-10-26 18:48] LABS: LYMPHOCYTES,BODY FLUID 22 %; NEUTROPHILS,BODY FLUID 43 %; OTHER CELLS,BODY FLUID 35 %; TOTAL CELLS COUNTED (DIFF) 100
[2024-10-26 18:50] LABS: MONO/MACROPHG,BODY FLUID 0 %
[2024-10-26 19:00] VITALS: BP 153/67; PULSE 89; RESP 18; TEMP 98.3; O2SAT 96
[2024-10-26] MEDS ORDERED: FOLIC ACID0.4 MG PO (20:42)
[2024-10-26] MEDS ORDERED: NEURONTIN100 MG PO (20:47)
[2024-10-26] MEDS ORDERED: FERROUS SULFAT325 MG PO (20:47)
[2024-10-26] MEDS ORDERED: JARDIANCE25 MG PO (20:47)
[2024-10-26] MEDS ORDERED: FLUOXETINE HCL20 MG PO (20:47)
[2024-10-26] MEDS ORDERED: METOPROLOL TART25 MG PO (20:50)
[2024-10-26] MEDS ORDERED: LOSARTAN POTASS25 MG PO (20:50)
[2024-10-26] MEDS ORDERED: NOVOLOG100 UNIT/1 SC (20:52)
[2024-10-26] MEDS: BUMETANIDE INJ 0.25MG/ML 4ML VIAL IV SCH (22:03)
[2024-10-26] MEDS ORDERED: DEXTROSE 50% SYRINGE 50 ML IV PRN (22:45)
[2024-10-27] VITALS (8 sets, daily range): BP systolic 120–155; BP diastolic 51–65; PULSE 88–101; RESP 17–20; TEMP 98.1–98.5; O2SAT 92–97
[2024-10-27] MEDS ORDERED: ALBUTEROL 90 MCG/ACT INHALER INH PRN
[2024-10-27] MEDS ORDERED: ACETAMINOPHEN 325 MG TAB PO PRN
[2024-10-27] MEDS: GABAPENTIN 100 MG CAP PO SCH (00:01)
[2024-10-27] MEDS: ACETAMINOPHEN 325 MG TAB PO PRN (00:01)
[2024-10-27] MEDS: TRAZODONE HCL 50 MG TAB PO SCH (00:02)
[2024-10-27] MEDS: INSULIN LISPRO 100 UNIT/1 ML 3ML VIAL SQ SCH (00:12)
[2024-10-27 06:22] LABS: BASOPHILS % 0.2 % (0.0-1.0); EOSINOPHILS % 0.1 % (0.0-6.0); HEMATOCRIT 25.4 % (34.2-44.1); LYMPHOCYTES # (AUTO) 1.6 (1.0-3.2); LYMPHOCYTES % 16.2 % (18.0-39.1); MEAN CORPUSCULAR HEMOGLOBIN 29.4 pg (28-32); MEAN CORPUSCULAR HGB CONC 29.1 g/dL (31-35); MEAN CORPUSCULAR VOLUME 100.8 fL (81-99); MONOCYTES # (AUTO) 0.9 (0.2-0.8); MONOCYTES % 8.6 % (4.4-11.3); NEUTROPHILS # (AUTO) 7.2 (2.1-6.9); NEUTROPHILS % 72.5 % (38.7-80.0); RED BLOOD COUNT 2.52 x10e6/uL (3.6-5.1); RED CELL DISTRIBUTION WIDTH 17.1 % (11.7-14.4); WHITE BLOOD COUNT 9.94 x10e3/uL (4.8-10.8)
[2024-10-27 06:27] LABS: HEMOGLOBIN 7.4 g/dL (12.0-16.0)
[2024-10-27 06:31] LABS: PLATELET COUNT 206 x10e3/uL (140-360)
[2024-10-27 06:47] LABS: ALBUMIN 2.8 g/dL (3.5-5.0); ALBUMIN/GLOBULIN RATIO 1.1 (0.8-2.0); BILIRUBIN,TOTAL 0.5 mg/dL (0.2-1.2); CREATININE, SERUM 2.78 mg/dL (0.57-1.11); TOTAL PROTEIN 5.3 g/dL (6.5-8.1)
[2024-10-27] MEDS ORDERED: ALBUTEROL SULF 0.083% NEB SOLN 3 ML NEB INH PRN ×2 (07:45)
[2024-10-27] MEDS ORDERED: GABAPENTIN 100 MG CAP PO SCH (09:00)
[2024-10-27] MEDS: FLUOXETINE HCL 20 MG CAP PO SCH (11:10)
[2024-10-27] MEDS: PANTOPRAZOLE SODIUM 40 MG SUSPDR.PKT PO SCH (11:10)
[2024-10-27] MEDS: CALCIUM CARBONATE 500 MG CHEWABLE TABS PO SCH (11:10)
[2024-10-27] MEDS: METOPROLOL TARTRATE 25 MG TAB PO SCH (11:11)
[2024-10-27] MEDS: FERROUS SULFATE 325 MG TAB PO SCH (11:11)
[2024-10-27] MEDS: HYDRALAZINE HCL 100 MG TABLET PO SCH (11:11)
[2024-10-27 12:42] LABS: % IRON SATURATION 22 % (15-50); IRON 51 ug/dL (50-170); TOTAL IRON BINDING CAPACITY 228 ug/dL (261-478); TRANSFERRIN 163 mg/dL (180-382)
[2024-10-27] MEDS: SAXAGLIPTIN HCL 2.5 MG PO SCH (13:30)
[2024-10-27 13:44] LABS: FOLATE 16.1 ng/mL (7.0-15.4)
[2024-10-27 17:29] LABS: ALBUMIN 2.9 g/dL (3.5-5.0); ALBUMIN/GLOBULIN RATIO 1.1 (0.8-2.0); ANION GAP 17.7 mmol/L (8-16); BILIRUBIN,TOTAL 0.6 mg/dL (0.2-1.2); CALCIUM 8.2 mg/dL (8.4-10.2); CREATININE, SERUM 2.76 mg/dL (0.57-1.11); POTASSIUM 3.7 mmol/L (3.5-5.1); TOTAL PROTEIN 5.5 g/dL (6.5-8.1)
[2024-10-27] MEDS: SODIUM FERRIC GLUCONATE COMPLX 125 MG in SODIUM CHLORIDE 0.9% 100 ML IV SCH (20:30)
[2024-10-27] MEDS ORDERED: TRAZODONE HCL 50 MG TAB PO SCH (21:00)
[2024-10-28] VITALS (9 sets, daily range): BP systolic 131–144; BP diastolic 51–71; PULSE 70–97; RESP 17–19; TEMP 97.9–98.2; O2SAT 90–100
[2024-10-28 08:00] LABS: BASOPHILS % 0.3 % (0.0-1.0); EOSINOPHILS % 0.2 % (0.0-6.0); HEMATOCRIT 26.9 % (34.2-44.1); LYMPHOCYTES # (AUTO) 1.3 (1.0-3.2); LYMPHOCYTES % 11.6 % (18.0-39.1); MEAN CORPUSCULAR HEMOGLOBIN 30.1 pg (28-32); MEAN CORPUSCULAR HGB CONC 29.7 g/dL (31-35); MEAN CORPUSCULAR VOLUME 101.1 fL (81-99); MONOCYTES # (AUTO) 0.9 (0.2-0.8); MONOCYTES % 8.2 % (4.4-11.3); NEUTROPHILS # (AUTO) 8.3 (2.1-6.9); NEUTROPHILS % 76.3 % (38.7-80.0); PLATELET COUNT 160 x10e3/uL (140-360); RED BLOOD COUNT 2.66 x10e6/uL (3.6-5.1); RED CELL DISTRIBUTION WIDTH 17.8 % (11.7-14.4); WHITE BLOOD COUNT 10.88 x10e3/uL (4.8-10.8)
[2024-10-28 08:30] LABS: ALBUMIN 2.7 g/dL (3.5-5.0); ANION GAP 20.8 mmol/L (8-16); BILIRUBIN,TOTAL 0.8 mg/dL (0.2-1.2); CALCIUM 7.9 mg/dL (8.4-10.2); CREATININE, SERUM 2.59 mg/dL (0.57-1.11); POTASSIUM 3.8 mmol/L (3.5-5.1); TOTAL PROTEIN 5.3 g/dL (6.5-8.1)
[2024-10-28] MEDS: PANTOPRAZOLE SODIUM 40 MG SUSPDR.PKT PO SCH (09:26)
[2024-10-28] MEDS: SODIUM BICARBONATE 650 MG TAB PO SCH (17:00)
[2024-10-28] MEDS: BUMETANIDE 1 MG TAB PO SCH (17:01)
[2024-10-28] MEDS: SODIUM FERRIC GLUCONATE COMPLX 125 MG in SODIUM CHLORIDE 0.9% 100 ML IV SCH (22:33)
[2024-10-29 04:13] VITALS: BP 130/57; PULSE 93; RESP 17; TEMP 98.7; O2SAT 91
[2024-10-29 06:12] VITALS: PULSE 85; RESP 20; O2SAT 95
[2024-10-29 06:13] LABS: BASOPHILS % 0.2 % (0.0-1.0); EOSINOPHILS # (AUTO) 0.1 (0.0-0.4); EOSINOPHILS % 0.7 % (0.0-6.0); HEMOGLOBIN 8.2 g/dL (12.0-16.0); LYMPHOCYTES # (AUTO) 1.7 (1.0-3.2); LYMPHOCYTES % 15.1 % (18.0-39.1); MEAN CORPUSCULAR HEMOGLOBIN 29.9 pg (28-32); MEAN CORPUSCULAR HGB CONC 31.5 g/dL (31-35); MEAN CORPUSCULAR VOLUME 94.9 fL (81-99); MONOCYTES # (AUTO) 1.1 (0.2-0.8); MONOCYTES % 9.6 % (4.4-11.3); NEUTROPHILS # (AUTO) 8.1 (2.1-6.9); NEUTROPHILS % 70.6 % (38.7-80.0); PLATELET COUNT 158 x10e3/uL (140-360); RED BLOOD COUNT 2.74 x10e6/uL (3.6-5.1); RED CELL DISTRIBUTION WIDTH 18.1 % (11.7-14.4); WHITE BLOOD COUNT 11.42 x10e3/uL (4.8-10.8)
[2024-10-29 06:51] LABS: ANION GAP 18.1 mmol/L (8-16); CALCIUM 8.3 mg/dL (8.4-10.2); CREATININE, SERUM 2.44 mg/dL (0.57-1.11)
[2024-10-29 06:54] LABS: POTASSIUM 3.1 mmol/L (3.5-5.1)
[2024-10-29 09:09] VITALS: BP 146/60; PULSE 93; RESP 20; TEMP 98.1; O2SAT 93
[2024-10-29] MEDS ORDERED: POTASSIUM CHLORIDE 20MEQ/100ML 200 ML IV ONE (11:15)
[2024-10-29 12:07] VITALS: BP 150/61; PULSE 88; RESP 20; TEMP 98.1; O2SAT 94
[2024-11-02 06:47] LABS: TOTAL PROTEIN,BODY FLUID 1.6 g/dL
== END 2024-10-29 17:30 | disposition home or self-care (01) | DRG 187 ==
LOC: ER 14:14 → ERHOLD 16:14 → MED/SURG2 17:54
PROVIDERS: ADMIT Internal Medicine; ATTEND Internal Medicine
PROC: 0W9B3ZZ Drainage of Left Pleural Cavity, Percutaneous Approach (ICD-10-PCS; principal; 2024-10-26)
DX: J90 Pleural effusion, not elsewhere classified (principal); C34.92 Malignant neoplasm of unspecified part of left bronchus or lung; N17.9 Acute kidney failure, unspecified; E87.20 Acidosis, unspecified; J81.1 Chronic pulmonary edema; I13.0 Hypertensive heart and chronic kidney disease with heart failure and stage 1 through stage 4 chronic kidney disease, or unspecified chronic kidney disease; I50.22 Chronic systolic (congestive) heart failure; C78.7 Secondary malignant neoplasm of liver and intrahepatic bile duct; N18.4 Chronic kidney disease, stage 4 (severe); R59.0 Localized enlarged lymph nodes; E11.22 Type 2 diabetes mellitus with diabetic chronic kidney disease; D50.0 Iron deficiency anemia secondary to blood loss (chronic); D63.1 Anemia in chronic kidney disease; J44.9 Chronic obstructive pulmonary disease, unspecified; I25.2 Old myocardial infarction; I25.10 Atherosclerotic heart disease of native coronary artery without angina pectoris; Z90.49 Acquired absence of other specified parts of digestive tract; Z88.0 Allergy status to penicillin; Z88.2 Allergy status to sulfonamides; Z88.1 Allergy status to other antibiotic agents; Z91.011 Allergy to milk products; Z91.012 Allergy to eggs; F17.210 Nicotine dependence, cigarettes, uncomplicated; Z79.02 Long term (current) use of antithrombotics/antiplatelets
CPT/HCPCS: 32555; 36415; 71045; 71250; 74181; 74470; 80048; 80053; 82607; 82746; 82945; 82948; 83540; 83615; 83880; 84157; 84466; 84484; 85025; 85045; 85610; 85730; 87070; 87205; 88112; 88305; 88342; 89051; 93005; 94799; 99252; 99284; C1729; J2916; J7050